=== PATIENT | male | born 1985 | race Two or more races ===

== ENCOUNTER 2019-02-14 10:43 | Emergency (ER) | payer BC, OTHER ==
[2019-02-14 10:53] VITALS: BMI 27.8
--- NOTE | 2019-02-14 11:27 | PDOC ---
History of Present Illness - General Chief Complaint: Pain Stated Complaint: Pain on testicles Time Seen by Provider: 02/14/19 11:02 History Source: Patient Exam Limitations: No Limitations - History of Present Illness Travel History: No Initial Comments: 02/14/19 11:03 33-year-old male presents to ED with complaints of pain to his right testicle for the past 2 days without aggravating or alleviating factors. Patient denies injury, heavy lifting, penile discharge, or urinary complaints. Patient denies history of hernia, hydrocele or varicocele. Timing/Duration: reports: constant Quality: reports: mild, sharpness Abdominal Pain Onset Location: reports: other Pain Radiation: reports: no radiation Activities at Onset: reports: none Aggravating Factors: improves with: None Alleviating Factors: improves with: None Past History - Travel Traveled outside of the country in the last 30 days: No Close contact w/someone who was outside of country & ill: No - Past Medical History Allergies/Adverse Reactions: Allergies Allergy/AdvReac Type Severity Reaction Status Date / Time No Known Allergies Allergy Verified 02/14/19 10:53 COPD: No - Suicide/Smoking/Psychosocial Hx Smoking History: Never smoked Information on smoking cessation initiated: No Hx Alcohol Use: No Drug/Substance Use Hx: No Patient Lives Alone: No Lives with/in: spouse/SO Review of Systems - Review of Systems Able to Perform ROS?: Yes Constitutional: No: Symptoms Reported ABD/GI: No: Symptoms Reported : Yes: Testicular Pain. No: Dysuria, Discharge, Urgency, Testicular Mass, Testicular Swelling Musculoskeletal: No: Symptoms Reported Integumentary: No: Symptoms Reported Neurological: No: Symptoms reported *Physical Exam - Vital Signs Last Vital Signs Temp Pulse Resp BP Pulse Ox 98.3 F 78 17 138/79 100 02/14/19 10:51 02/14/19 10:51 02/14/19 10:51 02/14/19 10:51 02/14/19 10:51 - Physical Exam General Appearance: Yes: Nourished, Appropriately Dressed. No: Apparent Distress Gastrointestinal/Abdominal: positive: Soft. negative: Distended, Tenderness Male Genitalia: positive: normal genitalia, other (mild tenderness over right testicular sperm cord). negative: discharge, testicular tenderness, epididymus tender, hernia Integumentary: positive: Normal Color, Warm, Moist Neurologic: positive: Motor Strength 5/5 (ambulatory) ED Treatment Course - RADIOLOGY Radiology Studies Ordered: Category Date Time Status SCROTUM AND CONTENTS US [US] Stat Ultrasound 02/14/19 11:02 Ordered Medical Decision Making - Medical Decision Making 02/14/19 11:06 In: Right testicular pain for the past 2 days without aggravating or alleviating factors. No other complaints Exam: Mild tenderness of the right testicular sperm cord Plan: Urinalysis urine culture GC chlamydia and scrotal ultrasound 02/14/19 12:51 Laboratory Tests 02/14/19 02/14/19 11:14 11:14 Ur Specific [place] 1.009 L Urine Ketones Negative Urine Blood Negative Urine Nitrite Negative Urine Bilirubin Negative Ur Leukocyte Esterase Negative C. trachomatis ([facility]) Pending N. gonorrhoeae ([facility]) Pending No evidence of testicular torsion or orchitis. There is no evidence of herniated bowel into the scrotal sac. Bilateral epididymal head cysts noted. Small bilateral hydroceles noted. Patient will be given copy of ultrasound and told to follow-up with his primary care physician *DC/Admit/Observation/Transfer Diagnosis at time of Disposition: Hydrocele - Discharge Dispostion Disposition: HOME Condition at time of disposition: Good - Referrals - Patient Instructions Printed Discharge Instructions: DI for Hydrocele-Adult Additional Instructions: Ultrasound showed cyst to the epididymal head and small hydroceles bilaterally. I have enclosed them information on hydrocele and recommended follow-up with her PCP to have a repeat ultrasound in approximately 6 months to a year to determine stability unless symptoms worsen prior to your follow-up - Post Discharge Activity
[2019-02-14 11:30] LABS: URINE APPEARANCE CLEAR; URINE BILIRUBIN NEGATIVE (NEGATIVE); URINE COLOR YELLOW; URINE GLUCOSE (UA) NEGATIVE (NEGATIVE); URINE KETONE NEGATIVE (NEGATIVE); URINE LEUK ESTERASE NEGATIVE (NEGATIVE); URINE NITRITE NEGATIVE (NEGATIVE); URINE PROTEIN NEGATIVE (NEGATIVE); URINE UROBILINOGEN 0.2 mg/dL (0.2-1.0)
[2019-02-14 13:17] VITALS: BP 105/65; PULSE 65; TEMP 97.9
== END 2019-02-14 13:23 | disposition home or self-care (01) ==
LOC: JER 10:43
DX: N43.2 Other hydrocele (principal)
CPT/HCPCS: 36415; 76870-TC; 81003; 87086; 87491; 87591; 99282-25